=== PATIENT | female | born 1980 | race Hispanic/Latino ===

== ENCOUNTER → 2018-02-28 | Day surgery (SDC) | payer BC ==
[~2018-02-28] MED LIST: AMITRIPTYLINE H25 MG PO; ATORVASTATIN CA20 MG PO; AZITHROMYCIN500 MG PO; FENTANYL CITRATE/PF 100MCG/2 ML INJ ONE; LIDOCAINE HCL 2% LOCAL INJ 5 ML SDV VIAL INJ ONE; MIDAZOLAM HCL 2 MG/2 ML VIAL ONE; PROPOFOL IV EMULSION 10 MG/ML 20 ML VIAL ONE; TRIAMTERENE-HCTZ1 EA PO; XYZAL5 MG PO
--- NOTE | 2018-02-28 08:38 | Operative Report ---
DATE OF PROCEDURE: February 28, 2018 PROCEDURES 1. Esophagogastroduodenoscopy. 2. Colonoscopy. PREOPERATIVE DIAGNOSIS: Patient with a history of abdominal pain, diarrhea, bloating, rule out peptic ulcer disease, gastroesophagitis, malabsorption, upper gastrointestinal neoplasm, inflammatory bowel disease, colorectal neoplasm. POSTOPERATIVE DIAGNOSIS: PROCEDURE: Esophagogastroduodenoscopy. After informed written consent, premedication with monitored anesthesia care, standard adult video Olympus gastroscope was introduced into the mouth, esophagus, stomach and to the 2nd portion of the duodenum. 1. The 1st and 2nd portion of the duodenum appeared to be normal. Biopsies were obtained to rule out malabsorption and celiac disease. 2. Gastritis was noted in the area of the antrum and body. Biopsies were done. There was evidence of bile staining suggestive of alkaline bile gastritis. 3. There was diminutive polyp 2-3 mm in size noted in the funds of the stomach. This was removed using a cold biopsy forceps. The rest of the esophagus appeared to be normal. PROCEDURE: Colonoscopy. The standard adult video Olympus colonoscope was introduced with ease into the terminal ileum. The terminal ileum, cecum, ileocecal valve appeared to be normal. Biopsies were obtained from the terminal ileum to rule out any possibility of inflammatory bowel disease since she has had a questionable diagnosis of Crohn's disease from a different facility. Random biopsies of the colon were obtained to rule out microscopic colitis. There was a sessile 5-mm polyp in the hepatic flexure. This was removed using a cold snare. Retroflexion in the rectum appeared to be normal. The remaining portion of the transverse, descending and sigmoid were all normal. IMPRESSION 1. Gastritis, possible bile alkaline gastritis. 2. Small diminutive gastric polyp in the fundus. 3. Sessile colon polyp, status post polypectomy. RECOMMENDATIONS 1. Colonoscopy in 3-5 years depending on the biopsies and pathology. 2. Possible bile acid-induced diarrhea. Continue Colistin or Questran as needed. 3. Follow up in the office in 3-4 weeks to discuss these biopsy findings. Further recommendations will be based on the patient's clinical course. Job#: [id number] [place]
== END | disposition home or self-care (01) ==
LOC: OR 05:38
PROVIDERS: ATTEND Internal Medicine Gastroenterology
DX: R19.7 Diarrhea, unspecified (principal); K63.5 Polyp of colon; K31.7 Polyp of stomach and duodenum; K29.70 Gastritis, unspecified, without bleeding; E66.01 Morbid (severe) obesity due to excess calories; I10 Essential (primary) hypertension; E78.5 Hyperlipidemia, unspecified; Z88.1 Allergy status to other antibiotic agents; Z88.0 Allergy status to penicillin; Z88.2 Allergy status to sulfonamides; Z01.810 Encounter for preprocedural cardiovascular examination; Z68.43 Body mass index [BMI] 50.0-59.9, adult; Z90.49 Acquired absence of other specified parts of digestive tract; Z86.711 Personal history of pulmonary embolism; Z83.79 Family history of other diseases of the digestive system
CPT/HCPCS: 43239; 45385; 81025; 93005; J2001; J2250; 45380